=== PATIENT | male | born 1950 | race Caucasian/White ===

== ENCOUNTER 2018-08-06 20:18 | Inpatient (IN) ==
[2018-08-06] MEDS ORDERED: TYLENOL PR ONE (20:55)
[2018-08-06 22:04] LABS: INFLUENZA A NEGATIVE (NEGATIVE); INFLUENZA B NEGATIVE (NEGATIVE)
--- NOTE | 2018-08-06 22:04 | Diag Imaging Result Doc PS360 ---
EXAM: CHEST-PORTABLE 08/06/2018 HISTORY: fever TECHNIQUE: Erect AP portable at 2145 COMMENT: The inspiration is suboptimal. There is a granuloma in the right base. Compared to 11/01/2017 there is slightly more prominence of the aortic arch of the aorta with displacement of the trachea to the right. The previous CT of the chest dated 01/08/2015 demonstrated slight dilatation of the ascending aorta to over 4 cm. There is no evidence of acute pulmonary parenchymal disease. IMPRESSION: Dilatation of the aortic arch. This appears slightly worse than on the previous study of 11/01/2017. Electronically signed by Ramiro Jurado 08/06/2018 10:02 PM
[2018-08-06 22:07] LABS: BASO# 0.02 X1000 (0.0-0.2); BASO% 0.1 % (0.0-0.8); EOS# 0.04 X1000 (0.0-0.7); EOS% 0.3 % (0.0-10.0); HEMATOCRIT 42.8 % (42.0-52.0); IMM GRAN# 0.02 X1000 (0.0-0.04); IMM GRAN% 0.1 % (0.0-0.5); LYMPH# 0.76 X1000 (1.2-3.4); LYMPH% 5.6 % (20.5-51.1); MCH 26.8 PG (27-31); MCHC 32.7 g/dL (33-37); MONO# 1.39 X1000 (0.11-0.59); MONO% 10.3 % (1.7-9.3); MPV 10.8 FL (7.4-10.4); NEUT# 11.27 X1000 (1.4-6.5); NEUT% 83.6 % (42.2-75.2); PLT 208 X1000 (130-400); RBC 5.22 XMIL (4.7-6.1); RDW 14.5 % (11.5-14.5)
[2018-08-06 22:26] LABS: INR 1.22
[2018-08-06 22:27] LABS: PTT 32.2 Seconds (22.3-41.8)
[2018-08-06 22:28] LABS: ALBUMIN 3.9 g/dL (3.5-5.0); CALCIUM 8.3 mg/dL (8.8-10.2); CREATININE 1.9 mg/dL (0.7-1.2); POTASSIUM 4.1 mmol/L (3.5-5.1); TOTAL BILIRUBIN 0.8 mg/dL (0.20-1.00); TOTAL PROTEIN 7.1 g/dL (6.3-8.3)
[2018-08-06] MEDS ORDERED: TYLENOL PO ONE (22:29)
[2018-08-06] MEDS ORDERED: NS 1,000 ML IV ONE (22:30)
[2018-08-07] MEDS ORDERED: ZOSYN 3.375 GM in NS 50 ML IV ONE (01:03)
[2018-08-07] MEDS: ZOFRAN IV PRN (01:36)
[2018-08-07] MEDS: NS 1,000 ML IV ONE ×2 (01:50→09:06)
--- NOTE | 2018-08-07 07:09 | Diag Imaging Result Doc PS360 ---
EXAM: CT ANGIOGRAM THORAX - 08/06/2018 HISTORY: fever ; widened mediastinum TECHNIQUE: CT angiogram thorax with intravenous contrast. Axial and coronal, 2-D coronal MIP, and the MIP images are obtained. The referring provider approved intravenous contrast administration. COMPARISON: None. FINDINGS: The ascending aorta is mildly dilated up to 4.1 cm. There is no evidence of aortic dissection. There are coronary artery atherosclerotic calcifications noted. 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 There is mild dependent atelectasis. There is no consolidation, pleural effusion or pneumothorax identified. There are nonspecific small mediastinal lymph nodes. Included sections of the upper abdomen show stones in the bilateral kidneys, including a staghorn-like stones in the right kidney. There has been prior cholecystectomy. IMPRESSION: Mildly dilated ascending aorta up to 4.1 cm. No evidence of aortic dissection. There are coronary artery atherosclerotic calcifications noted. Mild dependent atelectasis. No evidence of pneumonia. Bilateral renal stones noted. The transplant nurse practitioner radiologist provided preliminary results at 12:37 AM on 08/07/2018. Electronically signed by Cameron Casillas 08/07/2018 7:07 AM
--- NOTE | 2018-08-07 08:04 | EKG Report ---
Test Performed on : 08/06/2018 9:25:25 PM Test Reason : chest pain Blood Pressure : / mmHG Vent. Rate : 089 BPM Atrial Rate : 500 BPM P-R Int : 000 ms QRS Dur : 068 ms QT Int : 354 ms P-R-T Axes : 000 006 040 degrees QTc Int : 430 ms Atrial fibrillation. with premature ventricular or aberrantly conducted complexes. Possible Inferior infarct , age undetermined Abnormal ECG When compared with ECG of 06-AUG-2018 21:24, (Unconfirmed) Atrial fibrillation. has replaced Junctional rhythm. Unconfirmed Result
[2018-08-07] MEDS: TYLENOL PO PRN ×2 (08:09→17:47)
[2018-08-07] MEDS ORDERED: NS 1,000 ML IV SCH (09:00)
[2018-08-07] MEDS: ZOSYN 3.375 GM in NS 50 ML IV SCH ×3 (09:07→23:38)
--- NOTE | 2018-08-07 09:50 | HISTORY AND PHYSICAL ---
PRIMARY CARE PHYSICIAN: Dr. Viky Burk. CHIEF COMPLAINT: Altered mental status and fever. HISTORY OF PRESENTING ILLNESS: This is a 67-year-old, male who presents to [facility] ER initially with the caregiver and his daughter stating that he had a temperature of 102 degrees at home and had been given Tylenol without relief. He had increased confusion and a cough. He has had a history of a CVA and dementia. Caregiver also reported that he had been having some trouble eating and seemed to choke on his food occasionally. He had not been wanting to eat anything but had been able to drink. His workup in the emergency room showed a temperature of 100.3 degrees. His white blood cell count was 13.50. His BUN was 25 with a creatinine of 1.9. We did a chest x-ray that showed dilation of the aortic arch that appeared slightly worse than his previous study of 11/01/[address] so we did a CT of the chest and thorax that showed a mildly dilated ascending aorta up to 4.1 cm but no evidence of aortic dissection noted. This morning, his temperature went up to 102 so he is being admitted for further evaluation and treatment. He is noted to be alert and awake but confused and unable to answer questions appropriately. No family at the bedside at this time. Information will be obtained from the ER records and previous medical records. 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 PAST SURGICAL HISTORY: Cholecystectomy, hernia repair, and lithotripsy. FAMILY HISTORY: Reviewed and noncontributory. SOCIAL HISTORY: He currently lives with family and has a caregiver. He has a history of smoking cigarettes but has been quit for greater than a year at this time. No alcohol or illicit drug use noted. ALLERGIES: He has no known drug allergies. HOME MEDICATIONS: A current list will need to be obtained, reviewed, and then restarted. We will place an order for nursing to update and confirm home medications. LABORATORY DATA: Showed a white blood cell count of 13.50, a hemoglobin of 14, hematocrit 42.8, platelets 208,000. PT and INR of 16 and 1.22. Sodium 136, potassium 4.1, chloride 97, CO2 24, BUN of 25, creatinine 1.9, glucose 157. Troponin was less than 0.010. Plasma lactate of 1.9. Influenza A and B were both negative. Chest x-ray showed dilation of the aortic arch that appeared to be slightly worse than on the previous study of 11/01/2017. We did a chest/thorax CTA that showed impression of mildly dilated ascending aorta up to 4.1 cm. No evidence of aortic dissection. There are coronary artery atherosclerotic calcifications noted. Mild dependent atelectasis but no evidence of pneumonia, and bilateral renal stones were noted. REVIEW OF SYSTEMS: Unable to obtain from patient due to confusion. PHYSICAL EXAMINATION: VITAL SIGNS: On arrival, he had a temperature of 100.3 degrees, pulse 73, respirations 18, blood pressure 133/73, saturating 96% on room air. This morning, he had a temperature of 102 degrees, still saturating 97% on room air. GENERAL: This is a 67-year-old, male who is lying in the bed. Unable to answer all questions appropriately. He can answer some simple yes or no questions. HEENT: Normocephalic, atraumatic. Normal ENT inspection. Oropharynx and nares are clear. Eyes: Pupils are equal, round, and reactive to light and accommodation. Extraocular movements are intact. NECK: Normal inspection. Normal range of motion. LUNGS: Clear to auscultation bilaterally with equal lung expansion and chest wall movement. HEART: With an irregular rate and rhythm but no murmurs, rubs, or gallops noted. ABDOMEN: Soft, nontender, nondistended. Bowel sounds are present x4 quadrants. MUSCULOSKELETAL: He is unable to ambulate and has right-sided weakness residual from his previous CVA. NEUROLOGICAL: Cranial nerves 2-12 appear grossly intact from what could be assessed at this time due to his confusion. ASSESSMENT: 1. Altered mental status. 2. Fever of unknown origin at this time. 3. Acute kidney injury. 4. Leukocytosis. PLAN: He has been admitted to the medical unit, placed on telemetry, O2 per protocol. He is NPO at this time. We are going to get a CT of the head without contrast. We are going to get a UA with reflux culture as this may be the source of the altered mental status, leukocytosis, and fever. We will obtain that this morning and review those results. We will go ahead and place him on Zosyn 3.375 g IV q.6 hours, normal saline at 75 mL an hour, Tylenol 650 p.o. q.6 hours p.r.n., Zofran 4 mg IV q.4 hours p.r.n. Again, we will have nursing to update and confirm home medications. We will restart as appropriate. Then we will check a CBC and BMP in the a.m. Further orders after seen by attending. Dictated by DEMARIO Grigsby for Brian Saha MD cc: DEMARIO Grigsby MD Lindsay Smith
--- NOTE | 2018-08-07 10:43 | Diag Imaging Result Doc PS360 ---
EXAM: CT HEAD W/O CONTRAST - 08/07/2018 HISTORY: AMS, HX CVA TECHNIQUE: CT head without contrast COMPARISON: 11/01/2017 FINDINGS: There are atrophic changes with prominence of the ventricular system, similar to prior. There are chronic ischemic changes, with old left superior frontal infarct, similar to prior. There is no new infarct identified, although acute infarcts may not be immediately visible. There is no evidence of intracranial hemorrhage, mass effect, or midline shift. There is no evidence of skull fracture. IMPRESSION: Atrophic changes and chronic ischemic changes similar to prior. No visible acute intracranial abnormality. This exam was performed using automated exposure control, adjustment of mA or kV according to patient size, and/or use of iterative reconstruction technique. Electronically signed by Cameron Casillas 08/07/2018 10:40 AM
[2018-08-07 11:10] LABS: BILIRUBIN URINE NEGATIVE (NEGATIVE); BLOOD URINE 4+ (NEGATIVE); CLARITY SL. CLOUDY (CLEAR); COLOR YELLOW; GLUCOSE URINE NEGATIVE (NEGATIVE); KETONE URINE NEGATIVE (NEGATIVE); LEUKOCYTES URINE 2+ (NEGATIVE); NITRITE URINE NEGATIVE (NEGATIVE); PROTEIN URINE 1+(30 mg/dL) mg/dL (NEGATIVE); SP GRAVITY URINE 1.005; UROBILINOGEN URINE NORMAL
[2018-08-07 11:19] LABS: URINE EPITHELIAL CELLS <10 /HPF (<10); URINE RBC TNTC /HPF (<10); URINE SOURCE CATH
[2018-08-07 11:20] LABS: UR AMPHETAMINES QUAL NONE DETECTED (NONE DETECT); UR BARBITUATES QUAL NONE DETECTED (NONE DETECT); UR BENZODIAZEPIN QUAL NONE DETECTED (NONE DETECT); UR CANNABINOIDS QUAL NONE DETECTED (NONE DETECT); UR COCAINE QUAL NONE DETECTED (NONE DETECT); UR METHADONE QUAL NONE DETECTED (NONE DETECT); UR METHAMPHETAMINE QUAL NONE DETECTED (NONE DETECT); UR OPIATES QUAL NONE DETECTED (NONE DETECT); UR OXYCODONE QUAL NONE DETECTED (NONE DETECT); UR PCP QUAL NONE DETECTED (NONE DETECT); UR PROPOXYPHENE QUAL NONE DETECTED (NONE DETECT); UR TCA QUAL NONE DETECTED (NONE DETECT)
--- NOTE | 2018-08-07 11:32 | Diag Imaging Result Doc PS360 ---
EXAM: CT RENAL STONE SEARCH - 08/07/2018 HISTORY: jakob TECHNIQUE: CT renal stone search without contrast COMPARISON: 11/02/2016 FINDINGS: There is intravenous contrast only prior evening's CT angiogram thorax in the bilateral renal collecting systems and urinary bladder. The dense contrast limits detail with regards to evaluate for renal stones. There is an apparent staghorn like calculus extends from the upper collecting system and into the renal pelvis on the right. There are apparent stones in the left kidney which are most conspicuous at the lower kidney. There is no hydronephrosis identified. There is a 2.1 cm cyst which arises at the lower right kidney similar to prior. There is a small umbilical hernia which contains a loop of small bowel, similar to prior. There is no evidence of bowel obstruction. There is mild colonic diverticulosis. There is no indication of diverticulitis. There is a moderate amount retained fecal debris in colon and rectum. There is no free air. The gallbladder is surgically absent. There are borderline retroperitoneal lymph nodes similar to prior. IMPRESSION: Some limitation of detail due to excreted intravenous contrast in the bilateral renal collecting systems and urinary bladder. There is an apparent staghorn like calculus which extends from the upper collecting system into the renal pelvis on the right. There are apparent stones in the left kidney which are most conspicuous at the lower kidney. There is no hydronephrosis identified. Small umbilical hernia which contains a loop of small bowel, similar to prior. No bowel obstruction. Mild uncomplicated colonic diverticulosis. Apparent constipation. This exam was performed using automated exposure control, adjustment of mA or kV according to patient size, and/or use of iterative reconstruction technique. Electronically signed by Cameron Casillas 08/07/2018 11:30 AM
[2018-08-07] MEDS: ASPIRIN EC PO SCH (14:27)
--- NOTE | 2018-08-07 15:29 | PROGRESS NOTE ---
DATE: 08/07/2018 SUBJECTIVE: Patient has no focal complaints. OBJECTIVE: Blood pressure 110/60, heart rate 70, respiratory 20, and temperature 98.2 degrees. The patient presented with confusion and fever really unknown source. He does have a history of staghorn calculi. He reports cough. His workup though does not suggest any clear source of infection, although the urinalysis which was not obtained until the day following the day after admission or the morning of the next day reveals hematuria and some degree of pyuria. He has Staghorn calculi. ASSESSMENT AND PLAN: My suspicion is he has a urinary tract infection with some degree of sepsis. Head CT which was also not obtained is negative. Renal colic CT was negative for an impacted ureteral stone. Other than that, he seems to be stable. cc: Brian Saha MD
[2018-08-07] MEDS ORDERED: FLU VACCINE IM ONE (18:37)
[2018-08-07] MEDS: KEPPRA PO SCH (23:37)
[2018-08-07] MEDS: LIPITOR PO SCH (23:37)
[2018-08-07] MEDS: LOPRESSOR PO SCH (23:37)
[2018-08-08] MEDS: ZOSYN 3.375 GM in NS 50 ML IV SCH ×3 (05:08→20:23)
[2018-08-08 06:40] LABS: BASO# 0.01 X1000 (0.0-0.2); BASO% 0.1 % (0.0-0.8); EOS# 0.03 X1000 (0.0-0.7); EOS% 0.4 % (0.0-10.0); HEMATOCRIT 36.8 % (42.0-52.0); HEMOGLOBIN 11.7 g/dL (14.0-18.0); IMM GRAN# 0.02 X1000 (0.0-0.04); IMM GRAN% 0.3 % (0.0-0.5); LYMPH# 0.59 X1000 (1.2-3.4); LYMPH% 7.6 % (20.5-51.1); MCH 26.4 PG (27-31); MCHC 31.8 g/dL (33-37); MCV 83.1 FL (81-99); MONO# 0.81 X1000 (0.11-0.59); MONO% 10.4 % (1.7-9.3); MPV 11.1 FL (7.4-10.4); NEUT# 6.31 X1000 (1.4-6.5); NEUT% 81.2 % (42.2-75.2); PLT 174 X1000 (130-400); RBC 4.43 XMIL (4.7-6.1); RDW 14.5 % (11.5-14.5); WBC 7.77 X1000 (4.8-10.8)
[2018-08-08 06:46] LABS: CALCIUM 7.7 mg/dL (8.8-10.2); CREATININE 1.7 mg/dL (0.7-1.2); POTASSIUM 3.7 mmol/L (3.5-5.1)
[2018-08-08] MEDS: PRINIVIL PO SCH (10:30)
[2018-08-08] MEDS: LOPRESSOR PO SCH ×2 (10:33→20:23)
[2018-08-08] MEDS: ASPIRIN EC PO SCH (10:33)
[2018-08-08] MEDS: KEPPRA PO SCH ×2 (10:33→20:23)
[2018-08-08] MEDS: LEXAPRO PO SCH (10:36)
[2018-08-08] MEDS ORDERED: NS 1,000 ML IV ONE (11:09)
[2018-08-08 11:49] LABS: ALBUMIN 2.7 g/dL (3.5-5.0); CALCIUM 7.4 mg/dL (8.8-10.2); CREATININE 1.6 mg/dL (0.7-1.2); POTASSIUM 3.2 mmol/L (3.5-5.1); TOTAL BILIRUBIN 0.4 mg/dL (0.20-1.00)
[2018-08-08] MEDS ORDERED: MBX SOLUTION MT PRN (15:45)
[2018-08-08] MEDS: LIPITOR PO SCH (20:23)
[2018-08-09] MEDS: ZOSYN 3.375 GM in NS 50 ML IV SCH ×4 (02:18→20:55)
[2018-08-09 06:17] LABS: BASO# 0.01 X1000 (0.0-0.2); BASO% 0.2 % (0.0-0.8); EOS# 0.11 X1000 (0.0-0.7); EOS% 1.7 % (0.0-10.0); HEMATOCRIT 33.1 % (42.0-52.0); HEMOGLOBIN 10.5 g/dL (14.0-18.0); IMM GRAN# 0.01 X1000 (0.0-0.04); IMM GRAN% 0.2 % (0.0-0.5); LYMPH# 0.77 X1000 (1.2-3.4); LYMPH% 12.1 % (20.5-51.1); MCHC 31.7 g/dL (33-37); MCV 81.9 FL (81-99); MONO# 0.86 X1000 (0.11-0.59); MONO% 13.5 % (1.7-9.3); MPV 10.7 FL (7.4-10.4); NEUT# 4.63 X1000 (1.4-6.5); NEUT% 72.3 % (42.2-75.2); PLT 179 X1000 (130-400); RBC 4.04 XMIL (4.7-6.1); RDW 14.3 % (11.5-14.5); WBC 6.39 X1000 (4.8-10.8)
[2018-08-09] MEDS: ASPIRIN EC PO SCH (08:26)
[2018-08-09] MEDS: LOPRESSOR PO SCH ×2 (08:26→20:55)
[2018-08-09] MEDS: KEPPRA PO SCH ×2 (08:27→20:55)
[2018-08-09] MEDS: PRINIVIL PO SCH (08:27)
[2018-08-09] MEDS: LEXAPRO PO SCH (08:27)
[2018-08-09] MEDS: LIPITOR PO SCH (20:55)
--- NOTE | 2018-08-09 22:03 | PROVIDER DOCUMENTATION ---
This chart was entered by Kera Banuelos Scribe, acting as scribe for Elton Kaur MD. HPI-General Adult - General Chief Complaint: Altered Mental Status Stated Complaint: AMS, FEVER Time Seen by Provider: 08/06/18 20:53 Source: patient Unable to obtain history due to:: altered (hx of dementia) Allergies/Adverse Reactions: Patient Allergies Allergy/AdvReac Type Severity Reaction Status Date / Time No Known Allergies Allergy Verified 02/15/18 20:32 Home Medications: Home Medication List Medication Instructions Recorded Confirmed Last Taken Type LISINOpril [Prinivil] 40 mg PO DAILY #0 tablet 08/12/14 02/15/18 06/19/16 Rx ATORVAstatin [Lipitor] 40 mg PO QHS 11/04/17 02/15/18 Unknown History Levetiracetam 500 mg PO BID 11/04/17 02/15/18 Unknown History Aspirin EC 81 mg PO DAILY tablet 11/05/17 02/15/18 Unknown Rx Escitalopram [Lexapro] 20 mg PO DAILY tablet 11/05/17 02/15/18 Unknown Rx Metoprolol [Lopressor] 12.5 mg PO BID tablet 11/05/17 02/15/18 Unknown Rx Rivaroxaban [Xarelto] 20 mg PO DAILY #30 tab 11/05/17 02/15/18 Unknown Rx - History of Present Illness -Gen Adult Nature of Presenting Problems: pt is a 67 yr male presenting with caregiver and daughter, caregiver reports fever today tmax 102, Tylenol given without relief, increased confusion and cough. she reports he has hx of CVA and dementia. caregiver reports last night he had trouble eating and seemed to be choking on his food, today pt has not wanted to eat anything but has been able to drink. pt does have dementia, difficulty communicating Severity: reports: moderate Onset/Duration: reports: this morning Timing: reports: still present Context/Activities at Onset: reports: rest Modifying Factors: improves with: analgesics (tylenol without relief) Associated Symptoms: reports: cough, fever/chills, weakness. denies: shortness of breath Review of Systems - Adult - REVIEW OF SYSTEMS - ADULT ROS:: ROS per family Constitutional: reports: fever, fatique Eyes: reports: no symptoms reported Ears, Nose, Mouth & Throat: reports: no symptoms reported Cardiovascular: reports: no symptoms reported Respiratory: reports: cough. denies: shortness of breath, wheezing Gastrointestinal: denies: diarrhea, vomiting Genitourinary: reports: no symptoms reported Musculoskeletal: reports: no symptoms reported Integumentary: reports: no symptoms reported Neurological: reports: other (increased confusion) Psychiatric: reports: no symptoms reported Endocrine: reports: no symptoms reported Hematologic/Lymphatic: reports: no symptoms reported Allergic/Immunologic: reports: no symptoms reported All Other Systems: Reviewed and Negative Past History - Adult - PAST MEDICAL HISTORY-ADULT Review of Records: reports: Old Records Reviewed, Nursing Assessment Review, Medications Reviewed, Social history reviewed & non-contributory. Major Childhood Illnesses: reports: denies history Cardiovascular: reports: A-Fib, HTN, hyperlipidemia Respiratory: reports: denies history Gastrointestinal: reports: denies history Obstetrical/Gynecological: reports: denies history Genitourinary: reports: kidney stones Musculoskeletal: reports: denies history Neurological: reports: CVA (July 2014), stroke deficits, dementia, Seizures/Epilepsy Endocrine/Immune: reports: denies history Other Conditions: reports: denies history - PRIOR SURGERIES/PROCEDURES Surgical/Procedure History: reports: cholecystectomy, hernia repair, other (cholecystectomy; lithotripsy) - IMMUNIZATION STATUS Childhood Immunizations: See Nurse Assessment Flu Vaccine: See Nurse Assessment - FAMILY HISTORY Family History: reviewed, not pertinent - SOCIAL HISTORY Smoking: quit greater than 1 year Substance Use: denies Living Situation: family Physical Exam-General - PHYSICAL EXAM-ADULT Initial Vital Signs Reviewed: Yes - CONSTITUTIONAL General Appearance: alert, no apparent distress, other (awake but not a reliable historian) - EYES Eyes: PERRL/EOMI, pink conjunctivae - HEAD, EARS, NOSE, MOUTH & THROAT HENMT: normocephalic/atraumatic, moist mucous membranes - NECK Neck: non-tender, full range of motion, supple, normal inspection - RESPIRATORY Respiratory: chest non-tender, lungs clear, decreased breath sounds (minimally decreased breath sounds). negative: wheezing - CARDIOVASCULAR Cardiovascular: normal peripheral pulses, regular rate, rhythm, no edema - GASTROINTESTINAL (ABDOMEN) Abdominal Exam: normal bowel sounds, non tender, soft - LYMPHATIC Lymphatic: no adenopathy - MUSCULOSKELETAL Back Exam: normal inspection, no CVA tenderness, no vertebral tenderness Extremity: normal range of motion, non-tender, normal inspection - SKIN Integumentary: normal color, normal turgor, warm/dry - NEUROLOGIC Neurologic: no motor/sensory deficits - PSYCHIATRIC Psych/Mental Status: disoriented x 3 Progress - PLAN OF CARE/RESULTS Progress/Plan/Lab Results: Vital Signs - 8 hr 08/06/18 20:47 Pulse Rate 73 Respiratory Rate 18 Blood Pressure 133/73 O2 Sat by Pulse Oximetry 96 Orders Category Date Time Status CHEST-PORTABLE [RAD] Stat Exams 08/06/18 21:08 Ordered CBC WITH ELECTRONIC DIFF [HEME] Stat Lab 08/06/18 21:07 Uncollected COMPREHENSIVE METABOLIC PANEL [CHEM] Stat Lab 08/06/18 21:[address] Stat Lab 08/06/18 21:07 Uncollected LACTATE, PLASMA [CHEM] Stat Lab 08/06/18 21:07 Uncollected PT [PROTIME WITH INR] [COAG] Stat Lab 08/06/18 21:07 Uncollected PTT [COAG] Stat Lab 08/06/18 21:07 Uncollected TROPONIN T Stat Lab 08/06/18 21:[address] [URINALYSIS] Stat Lab 08/06/18 21:08 Uncollected Acetaminophen [Tylenol] Med 08/06/18 20:55 Discontinued 650 mg OR NOW ONE EKG [EKG] Stat Ther 08/06/18 21:07 Ordered Result Diagrams: 08/06/18 21:38 08/06/18 21:38 - EKG 1 Time of EKG reading by physician:: 21:25 EKG Read and Signed by:: Elton Kaur EKG Interpretation (*Must complete 3 of following elements*): Abnormal (atrial fibrillation with premature ventricular or aberrantly conducted complexes; possible inferior infarct, age undetermined) Rate: 89 - XRAY 1 XRAY Study: Chest Impression: Abnormal (EXAM: CHEST-PORTABLE 08/06/2018 HISTORY: fever TECHNIQUE: Erect AP portable at 2145 COMMENT: The inspiration is suboptimal. There is a granuloma in the right base. Compared to 11/01/2017 there is slightly more prominence of the aortic arch of the aorta with displacement of the trachea to the right. The previous CT of the chest dated 01/08/2015 demonstrated slight dilatation of the ascending aorta to over 4 cm. There is no evidence of acute pulmonary parenchymal disease. IMPRESSION: Dilatation of the aortic arch. This appears slightly worse than on the previous study of 11/01/2017. Electronically signed by Ramiro Jurado 08/06/2018 10:02 PM [id number] Interpreting Physician: Ramiro Jurado MD Dictated Date/Time: [id number]) - CT/MRI 1 CT Study: Abdomen, Angiogram, Thorax Impression: Abnormal (No aortic dissection; thoracic aorta is 4cm; ateroscleroti c calcifications in coronary arteries, abdominal aorta; moderate to severe narrowing of proximal right renal artery; bilateral renal calculi; No pneumonia) - CONSULTS/PCP/HOSPITALIST Notification #1 *Consult/PCP/Hospitalist*: Dr. Saha Time Discussed: 01:00 Consult Disposition: Admit (start empiric antibiotic) Departure - Departure Date of Disposition Decision: 08/07/18 Time of Disposition Decision: 01:01 DIAGNOSIS: Fever Qualifiers: Fever type: unspecified Qualified Code(s): R50.9 - Fever, unspecified Altered mental status Qualifiers: Altered mental status type: unspecified Qualified Code(s): R41.82 - Altered mental status, unspecified Renal failure Qualifiers: Renal failure chronicity: unspecified chronicity Qualified Code(s): N19 - Unspecified kidney failure Disposition: ADMITTED INPATIENT 09 Certified Medical Emergency: Emergent Condition: Serious - Critical Care Note This patient required my direct & personal management of CC.: No Attestation - Physician/ ROSA Attestation The physician spent face to face time with patient:: Yes Advanced Practice Provider documentation review:: Supervising physician onsite and consulted in the evaluation and care of this patient. The physician did have a face to face encounter with the patient. This chart was documented by the indicated scribe, (Kera Banuelos Scribe) and accurately reflects the services I performed and decisions made by me, Elton Kaur MD, as attested by the provider's signature.
[2018-08-10] MEDS: ZOSYN 3.375 GM in NS 50 ML IV SCH ×4 (03:58→20:40)
[2018-08-10 07:21] LABS: BASO# 0.01 X1000 (0.0-0.2); BASO% 0.1 % (0.0-0.8); EOS# 0.29 X1000 (0.0-0.7); EOS% 4.1 % (0.0-10.0); HEMATOCRIT 32.6 % (42.0-52.0); HEMOGLOBIN 10.5 g/dL (14.0-18.0); IMM GRAN# 0.01 X1000 (0.0-0.04); IMM GRAN% 0.1 % (0.0-0.5); LYMPH# 1.25 X1000 (1.2-3.4); LYMPH% 17.8 % (20.5-51.1); MCH 26.6 PG (27-31); MCHC 32.2 g/dL (33-37); MCV 82.7 FL (81-99); MONO% 14.3 % (1.7-9.3); MPV 10.4 FL (7.4-10.4); NEUT# 4.45 X1000 (1.4-6.5); NEUT% 63.6 % (42.2-75.2); PLT 198 X1000 (130-400); RBC 3.94 XMIL (4.7-6.1); RDW 14.3 % (11.5-14.5); WBC 7.01 X1000 (4.8-10.8)
[2018-08-10 07:31] LABS: CALCIUM 7.4 mg/dL (8.8-10.2); CREATININE 1.4 mg/dL (0.7-1.2); POTASSIUM 3.6 mmol/L (3.5-5.1)
--- NOTE | 2018-08-10 09:14 | PROGRESS NOTE ---
DATE: 08/10/2018 SUBJECTIVE: Patient denies having any acute complaints this morning. OBJECTIVE: Vital Signs: Temperature 97.6 degrees, pulse 50 per minute, respiratory rate 19 per minute, blood pressure 117/67, pulse oximetry 99% on room air. General: Patient is awake and does not have any acute complaints this morning. Cardiovascular System: First and second heart sounds are audible without any murmurs or gallops. Respiratory System: No respiratory distress noted. Bilateral lung air entry is good without any rales or rhonchi. Gastrointestinal System: Abdomen is soft and nontender. Normal bowel sounds are present. DIAGNOSTIC DATA: CBC this morning shows hemoglobin 10.5 and hematocrit 32.6, which is pretty much the same as compared to previous days' labs. He did have hemoglobin 14 and hematocrit 42.8 on admission on 08/06/2018, however. Basic metabolic panel shows BUN of 1.4. Rest of the basic metabolic panel is nondiagnostic. On admission, his BUN was 25, creatinine was 1.9. IMPRESSION: 1. Sepsis secondary to urinary tract infection. 2. Acute kidney injury that is most likely prerenal. 3. Anemia of unknown etiology. PLAN: The patient will be continued on IV Zosyn and I am going to restart his IV fluids as normal saline at 75 mL an hour. I am also going to repeat urinalysis today and would obtain anemia workup, including stool for Hemoccult. Further recommendations will be given as per hospital course. cc: Agatha Orlando MD
[2018-08-10] MEDS: NS 1,000 ML IV SCH (09:18)
[2018-08-10] MEDS: PRINIVIL PO SCH (09:19)
[2018-08-10] MEDS: ASPIRIN EC PO SCH (09:19)
[2018-08-10] MEDS: KEPPRA PO SCH ×2 (09:19→20:40)
[2018-08-10] MEDS: LOPRESSOR PO SCH ×2 (09:19→20:40)
[2018-08-10] MEDS: LEXAPRO PO SCH (09:20)
[2018-08-10 09:58] LABS: IRON SATURATION 12 %; TIBC 163 ug/dL; TOTAL IRON 19 ug/dL (53-167); UNBOUND IRON 144 ug/dL (112-346)
[2018-08-10 11:02] LABS: OCCULT BLOOD 1 NEGATIVE (NEGATIVE)
[2018-08-10 11:54] LABS: BILIRUBIN URINE NEGATIVE (NEGATIVE); CLARITY CLEAR (CLEAR); COLOR YELLOW; GLUCOSE URINE NEGATIVE (NEGATIVE); KETONE URINE NEGATIVE (NEGATIVE); URINE SOURCE CLEAN CATCH
[2018-08-10 11:55] LABS: BLOOD URINE 3+ (NEGATIVE); LEUKOCYTES URINE 2+ (NEGATIVE); NITRITE URINE NEGATIVE (NEGATIVE); PROTEIN URINE NEGATIVE (NEGATIVE); UROBILINOGEN URINE NORMAL
[2018-08-10 12:02] LABS: URINE BACTERIA 1+ /HFP
[2018-08-10] MEDS: LIPITOR PO SCH (20:40)
[2018-08-11] MEDS: ZOSYN 3.375 GM in NS 50 ML IV SCH ×4 (02:35→20:40)
[2018-08-11] MEDS: NS 1,000 ML IV SCH ×2 (03:13→11:54)
[2018-08-11 06:13] LABS: BASO# 0.01 X1000 (0.0-0.2); BASO% 0.2 % (0.0-0.8); EOS# 0.26 X1000 (0.0-0.7); EOS% 5.2 % (0.0-10.0); HEMATOCRIT 31.3 % (42.0-52.0); IMM GRAN# 0.01 X1000 (0.0-0.04); IMM GRAN% 0.2 % (0.0-0.5); LYMPH# 0.98 X1000 (1.2-3.4); LYMPH% 19.4 % (20.5-51.1); MCH 26.3 PG (27-31); MCHC 31.9 g/dL (33-37); MCV 82.4 FL (81-99); MONO# 0.54 X1000 (0.11-0.59); MONO% 10.7 % (1.7-9.3); MPV 10.7 FL (7.4-10.4); NEUT# 3.24 X1000 (1.4-6.5); NEUT% 64.3 % (42.2-75.2); PLT 203 X1000 (130-400); RDW 14.4 % (11.5-14.5); WBC 5.04 X1000 (4.8-10.8)
[2018-08-11 06:38] LABS: CALCIUM 7.4 mg/dL (8.8-10.2); CREATININE 1.2 mg/dL (0.7-1.2); POTASSIUM 3.3 mmol/L (3.5-5.1)
[2018-08-11] MEDS ORDERED: KLOR-CON PO ONE (08:12)
[2018-08-11] MEDS: PRINIVIL PO SCH (08:52)
[2018-08-11] MEDS: LEXAPRO PO SCH (08:52)
[2018-08-11] MEDS: LOPRESSOR PO SCH ×2 (08:52→20:40)
[2018-08-11] MEDS: ASPIRIN EC PO SCH (08:52)
[2018-08-11] MEDS: KEPPRA PO SCH ×2 (08:52→20:40)
--- NOTE | 2018-08-11 10:46 | PROGRESS NOTE ---
DATE: 08/11/2018 SUBJECTIVE: The patient denies having any acute complaints this morning, although he does feel weak. OBJECTIVE: Vital Signs: Temperature 97.5 degrees, pulse 55 per minute, respiratory rate 18 per minute, blood pressure 130/72, pulse oximetry 98% on room air. General: Patient is alert and oriented x3. He does not appear to be in any acute distress. Cardiovascular System: First and second heart sounds are audible without any murmurs or gallops. Respiratory System: No respiratory distress noted. Bilateral lung air entry is good without any rales or rhonchi. Gastrointestinal System: Abdomen is soft and nontender. Normal bowel sounds are present. DIAGNOSTIC DATA: CBC shows WBC count of 5.04, hemoglobin 10.0, hematocrit 31.3, and platelet count of 203. In comparison, his hemoglobin and hematocrit were 10.5 and 32.6 yesterday. Chemistry shows potassium level of 3.3. Rest of the basic metabolic panel is nondiagnostic. His creatinine levels have improved from 1.4 to 1.2 today. IMPRESSION: 1. Sepsis secondary to urinary tract infection. 2. Acute kidney injury that has improved. 3. Anemia with stool Hemoccult negative, which has been stable. 4. Hypokalemia. PLAN: The patient will be continued on IV Zosyn along with IV fluids. He will also be kept on his routine home medications, and I am going to give him potassium chloride 40 mEq orally as a single dose for his hypokalemia. We will continue to monitor his hemoglobin and hematocrit, and therefore I am going to repeat CBC and BMP tomorrow morning. Further recommendations will be given as per hospital course. cc: Agatha Orlando MD
[2018-08-11] MEDS: LIPITOR PO SCH (20:40)
[2018-08-12] MEDS: ZOSYN 3.375 GM in NS 50 ML IV SCH ×4 (02:34→23:03)
[2018-08-12] MEDS: NS 1,000 ML IV SCH ×3 (02:35→18:12)
[2018-08-12 06:46] LABS: BASO# 0.02 X1000 (0.0-0.2); BASO% 0.3 % (0.0-0.8); EOS# 0.29 X1000 (0.0-0.7); EOS% 4.9 % (0.0-10.0); HEMATOCRIT 32.1 % (42.0-52.0); IMM GRAN# 0.01 X1000 (0.0-0.04); IMM GRAN% 0.2 % (0.0-0.5); LYMPH# 0.97 X1000 (1.2-3.4); LYMPH% 16.6 % (20.5-51.1); MCHC 31.2 g/dL (33-37); MCV 83.4 FL (81-99); MONO# 0.62 X1000 (0.11-0.59); MONO% 10.6 % (1.7-9.3); MPV 10.4 FL (7.4-10.4); NEUT# 3.95 X1000 (1.4-6.5); NEUT% 67.4 % (42.2-75.2); PLT 226 X1000 (130-400); RBC 3.85 XMIL (4.7-6.1); RDW 14.5 % (11.5-14.5); WBC 5.86 X1000 (4.8-10.8)
[2018-08-12 07:03] LABS: CALCIUM 7.5 mg/dL (8.8-10.2); CREATININE 1.2 mg/dL (0.7-1.2); POTASSIUM 3.7 mmol/L (3.5-5.1)
--- NOTE | 2018-08-12 10:02 | PROGRESS NOTE ---
DATE: 08/12/2018 SUBJECTIVE: Patient denies having any acute complaints this morning. OBJECTIVE: Vital Signs: Temperature 98 degrees, pulse 59 per minute, respiratory rate 17 per minute, blood pressure 142/63, pulse 97% on room air. General: Patient is alert and oriented x3. He does not appear to be in any acute distress. Cardiovascular System: First and second heart sounds are audible without any murmurs or gallops. Respiratory System: Bilateral lung air entry is moderately decreased, but there are no rales or rhonchi present on auscultation. GI system: Abdomen is benign. DIAGNOSTIC DATA: CBC shows WBC count of 5.86, hemoglobin 10, hematocrit 32.1, and platelet count of 226,000. In comparison, his hemoglobin and hematocrit were unchanged yesterday. Basic metabolic panel this morning is nondiagnostic. His potassium levels have improved from 3.3 to 7.7, however. IMPRESSION: 1. Sepsis secondary to urinary tract infection. 2. Anemia that has been stable. 3. Hypokalemia that has improved. 4. Generalized weakness for which he is getting physical therapy. PLAN: The patient will be continued on IV Zosyn along with IV fluids and will be kept on his routine home medications. He is having anemia, but that is stable and therefore, no further workup is necessary at this time. He will continue with physical therapy and will most likely be transferred to rehab sometime this week. cc: Agatha Orlando MD
[2018-08-12] MEDS: ASPIRIN EC PO SCH (10:07)
[2018-08-12] MEDS: PRINIVIL PO SCH (10:07)
[2018-08-12] MEDS: KEPPRA PO SCH ×2 (10:07→21:31)
[2018-08-12] MEDS: LEXAPRO PO SCH (10:07)
[2018-08-12] MEDS: LOPRESSOR PO SCH ×2 (10:08→21:32)
[2018-08-12] MEDS: LIPITOR PO SCH (21:32)
[2018-08-13] MEDS: NS 1,000 ML IV SCH (05:29)
[2018-08-13] MEDS: ZOSYN 3.375 GM in NS 50 ML IV SCH ×4 (05:30→23:16)
[2018-08-13 06:40] LABS: BASO# 0.01 X1000 (0.0-0.2); BASO% 0.1 % (0.0-0.8); EOS# 0.31 X1000 (0.0-0.7); EOS% 4.1 % (0.0-10.0); HEMATOCRIT 31.9 % (42.0-52.0); HEMOGLOBIN 9.8 g/dL (14.0-18.0); IMM GRAN# 0.02 X1000 (0.0-0.04); IMM GRAN% 0.3 % (0.0-0.5); LYMPH# 0.98 X1000 (1.2-3.4); LYMPH% 13.1 % (20.5-51.1); MCH 25.7 PG (27-31); MCHC 30.7 g/dL (33-37); MCV 83.7 FL (81-99); MONO# 0.66 X1000 (0.11-0.59); MONO% 8.8 % (1.7-9.3); MPV 10.3 FL (7.4-10.4); NEUT# 5.49 X1000 (1.4-6.5); NEUT% 73.6 % (42.2-75.2); PLT 234 X1000 (130-400); RBC 3.81 XMIL (4.7-6.1); RDW 14.6 % (11.5-14.5); WBC 7.47 X1000 (4.8-10.8)
[2018-08-13 06:52] LABS: CALCIUM 7.4 mg/dL (8.8-10.2); CREATININE 1.2 mg/dL (0.7-1.2); POTASSIUM 3.6 mmol/L (3.5-5.1)
[2018-08-13] MEDS: ASPIRIN EC PO SCH (09:27)
[2018-08-13] MEDS: PRINIVIL PO SCH (09:27)
[2018-08-13] MEDS: LOPRESSOR PO SCH ×2 (09:27→20:33)
[2018-08-13] MEDS: KEPPRA PO SCH ×2 (09:27→20:33)
[2018-08-13] MEDS: LEXAPRO PO SCH (09:28)
--- NOTE | 2018-08-13 15:03 | PROGRESS NOTE ---
DATE: 08/13/2018 SUBJECTIVE: Patient overall is in no distress. He states he is feeling a little bit better. He is still very weak and fatigued. He has not really been up with physical therapy as yesterday was Monday. He denies any chest pain or palpitations. PHYSICAL EXAMINATION: Vital Signs: Reviewed and stable. General: He is awake and alert. He is in no distress. HEENT: Normocephalic. Neck: Supple. Cardiovascular: Regular rate. No murmurs. Chest: Clear. ASSESSMENT: 1. Sepsis secondary to urinary tract infection. 2. Urinary tract infection. 3. Anemia. 4. Hypokalemia, resolved. 5. Generalized weakness. Continue physical therapy. PLAN: Overall, the patient appears to be doing better. We will continue IV fluids today and then we will stop after this bag. We will continue Zosyn. We will get physical therapy involved. cc: Shaq Becker MD
[2018-08-13] MEDS: LACTULOSE PO SCH ×2 (17:31→20:34)
[2018-08-13] MEDS: LIPITOR PO SCH (20:33)
[2018-08-14] MEDS: ZOSYN 3.375 GM in NS 50 ML IV SCH ×4 (05:10→22:00)
[2018-08-14] MEDS: LOPRESSOR PO SCH ×2 (08:50→21:52)
[2018-08-14] MEDS: LEXAPRO PO SCH (08:50)
[2018-08-14] MEDS: PRINIVIL PO SCH (08:50)
[2018-08-14] MEDS: KEPPRA PO SCH ×2 (08:50→21:51)
[2018-08-14] MEDS: LACTULOSE PO SCH ×2 (08:50→21:52)
[2018-08-14] MEDS: ASPIRIN EC PO SCH (08:50)
[2018-08-14] MEDS: ZOFRAN IV PRN (16:32)
--- NOTE | 2018-08-14 16:55 | Diag Imaging Result Doc PS360 ---
EXAM: CHEST-PORTABLE HISTORY: wheezing, possible aspiration TECHNIQUE: Portable chest single view COMPARISON: 08/06/2018 FINDINGS: Poor inspiratory effort. The heart is not enlarged. The vessels are not distended. There are no infiltrates. No effusion identified. IMPRESSION: No pneumonia Electronically signed by Jeffrey Nguyễn 08/14/2018 4:53 PM
[2018-08-14] MEDS: LIPITOR PO SCH (21:51)
--- NOTE | 2018-08-14 22:23 | PROGRESS NOTE ---
DATE: 08/14/2018 SUBJECTIVE: The patient has no new complaints this morning. Denies any shortness of breath, chest pain. PHYSICAL: Temperature 97.9, pulse 86, respiratory 18, BP 150/69.General: Patient is awake, he is in no current respiratory distress. HEENT: Normocephalic. Neck: Supple. CV: Regular rate. Chest: Clear. Abdomen: Soft. Extremities: Moves all extremities although generalized weakness. ASSESSMENT: 1. Sepsis secondary to urinary tract infection. 2. Urinary tract infection . 3. Anemia. 4. Hyperkalemia resolved. 5. Generalized weakness requiring physical therapy. PLAN: Will continue physical therapy, continue to follow, patient will transfer to rehab when available. cc: Shaq Becker MD
[2018-08-15] MEDS ORDERED: NS 50 ML ONE ×2 (04:14→04:15)
[2018-08-15] MEDS: ZOSYN 3.375 GM in NS 50 ML IV SCH ×4 (04:45→23:20)
[2018-08-15] MEDS: PRINIVIL PO SCH (08:19)
[2018-08-15] MEDS: KEPPRA PO SCH ×2 (08:19→21:45)
[2018-08-15] MEDS: ASPIRIN EC PO SCH (08:19)
[2018-08-15] MEDS: LEXAPRO PO SCH (08:19)
[2018-08-15] MEDS: LACTULOSE PO SCH ×2 (08:20→21:45)
[2018-08-15] MEDS: LIPITOR PO SCH (21:45)
--- NOTE | 2018-08-16 00:38 | PROGRESS NOTE ---
DATE: 08/15/2018 SUBJECTIVE: The patient has no new complaints. OBJECTIVE: Vital Signs: Temperature 97, pulse 41, respiratory rate 18, BP 138/55. General: The patient is awake and alert. He is in no distress. HEENT: Normocephalic. Neck: Supple. Cardiovascular: Bradycardia. No murmurs. Chest: Clear and nonlabored. Abdomen: Soft, nondistended. Extremities: Moves all extremities. ASSESSMENT: 1. Bradycardia likely iatrogenically induced. 2. Generalized weakness. 3. Sepsis. 4. Urinary tract infection. PLAN: We will follow the patient's heart rate. We will not discharge him to rehab today as his heart rate is low. We will continue to follow. cc: Shaq Becker MD
[2018-08-16] MEDS: ZOSYN 3.375 GM in NS 50 ML IV SCH ×2 (04:49→11:45)
[2018-08-16 07:23] VITALS: BP 156/67
[2018-08-16] MEDS: LACTULOSE PO SCH (08:45)
[2018-08-16] MEDS: PRINIVIL PO SCH (08:45)
[2018-08-16] MEDS: ASPIRIN EC PO SCH (08:45)
[2018-08-16] MEDS: KEPPRA PO SCH (08:45)
[2018-08-16] MEDS: LEXAPRO PO SCH (08:45)
--- NOTE | 2018-08-16 11:04 | DISCHARGE SUMMARY ---
ADMISSION DATE: 08/07/2018 DISCHARGE DATE: 08/16/2018 DIAGNOSES: 1. Sepsis secondary to UTI, resolved. 2. Fever, resolved. 3. Acute kidney injury, resolved. 4. Leukocytosis, resolved. 5. Hypokalemia, resolved. 6. Generalized weakness. DIAGNOSTICS: 1. 08/06/2018 chest x-ray revealed dilatation of the aortic arch to over 4 cm with no evidence of acute pulmonary parenchymal disease. 2. CT angiogram thorax revealed mildly dilated aorta up to 4.1 cm. No evidence of dissection. Coronary artery atherosclerotic calcifications are noted. Mild dependent atelectasis. No evidence of pneumonia with bilateral renal stones noted. 3. Renal CT. There is an apparent staghorn like calculus which extends from the upper collecting system into the renal pelvis on the right. There are apparent stones in the left kidney, which are most conspicuous at the lower kidney. There is no hydronephrosis identified. Mild uncomplicated colonic diverticulosis. Small umbilical hernia which contains a loop of bowel similar to prior exam on October 2016. No bowel obstruction. 4. Repeat chest x-ray 08/14/2017 revealed no pneumonia, poor respiratory in effort. The heart is not enlarged. Vessels are not distended. There are no infiltrates, no effusion identified. MICROBIOLOGY: 1. Blood cultures x2 revealed no growth. 2. Urine culture revealed no growth although this was taken after antibiotics had begun. HOSPITAL COURSE: Mr. Domingo presented to the emergency room with altered mental status and a temperature of a 102 degrees. He was found to be septic from a urinary tract infection for which he has received Zosyn every 6 hours. This has cleared. He is now alert and oriented. He on admission, had a creatinine 1.9. After hydration and antibiotics the did creatinine has slowly decreased and today he is down to 1.2. We did trend electrolytes and replete as appropriate. Physical therapy has been working with the patient. Thankfully, he is ready for discharge to rehab. DISCHARGE VITAL SIGNS: Blood pressure is 156/67, heart rate of 50, respirations are 20, temperature is 98 degrees with room air saturations 98 to 100. PHYSICAL EXAMINATION: Cardiovascular regular rate and rhythm, S1 and S2 appreciated. He has no lower extremity edema with peripheral pulses palpable x4 extremities. Calves are nontender. Pulmonary: Breath sounds are diminished at the bases with no increased work of breathing noted. Chest rises and falls symmetrically with respiration. Chest wall is nontender to palpation. Gastrointestinal: Abdomen is soft, nontender, nondistended with bowel sounds in all 4 quadrants. Neurologic: He is alert oriented. DISCHARGE MEDICATIONS: 1. Lisinopril 40 mg p.o. daily. 2. Keppra 500 mg p.o. b.i.d. 3. Lexapro 20 mg daily. 4. MBX solution 15 mL 4 times a day p.r.n. 5. Lipitor 40 mg at bedtime. 6. Aspirin 81 mg daily. DISPOSITION: 1. The patient will not be discharged on antibiotics as blood culture and urine culture are ultimately negative and he has been on Zosyn 3.375 every 6 hours since August 07. 2. The patient is being discharged in transfer to rehab in stable condition. TIME SPENT: This is a greater than 30 minute discharge. Dictated by DEMARIO Mathew for Shaq Becker MD This chart was documented by, DEMARIO Mathew and accurately reflects the services performed, treatment plan and medical decisions as attested by the providers signature Shaq Becker MD. cc: DEMARIO Mathew MD
--- NOTE | 2018-08-17 02:23 | DISCHARGE SUMMARY ---
ADMISSION DATE: 08/07/2018 DISCHARGE DATE: 08/16/2018 ADDENDUM: Patient seen and examined by myself. Full note dictated and discussed with nurse practitioner. Patient's bradycardia has improved since holding his beta blockers. His sepsis appears resolved. He does have anemia, this is stable. He has been on antibiotics for 7 days, so therefore does not need to continue. We will transfer him to rehab. Please see full note. cc: Shaq Becker MD
== END 2018-08-16 13:12 | DRG 871 ==
LOC: P.ED 20:18 → P.MEDSURG 08-07 03:01 → SUATTDRO 08-07 03:01 → P.MEDSURG 08-07 03:24
PROVIDERS: ATTEND Family Medicine
CPT/HCPCS: 36415; 70450; 71010; 71045; 71275; 74176; 80048; 80053; 80104; 80301; 80305; 81001; 82270; 82607; 82728; 82746; 82948; 83540; 83550; 83605; 83615; 84484; 85025; 85610; 85730; 87040; 87088; 87275; 87276; 87804; 92610; 93005; 94761; 96361; 96365; 96366; 96375; 97162; 97530; 99285; A9270; G0431; G0434; G0477; J2405; J2543; J7030; Q9967; XXXXX

== ENCOUNTER 2019-03-27 20:54 | Inpatient (IN) ==
--- NOTE | 2019-03-27 21:27 | Diag Imaging Result Doc PS360 ---
EXAM: CT HEAD W/O CONTRAST 03/27/2019 HISTORY: possible stroke TECHNIQUE: This exam was performed using automated exposure control, adjustment of mA or kV according to patient size, and/or use of iterative reconstruction technique. COMMENT: There is generalized cerebral atrophy. There is encephalomalacia present anteriorly in the frontal and parietal cortex and subcortical white matter of the left hemisphere. There is generalized periventricular white matter lucency on the right. There is no evidence of bleed or abnormal extra-axial fluid collection. Compared to the previous examination of 08/07/2018 there has been no significant change. IMPRESSION: Chronic ischemic changes and atrophy. No evidence of acute disease. Electronically signed by Ramiro Jurado 03/27/2019 9:25 PM
[2019-03-27 21:53] LABS: BASO# 0.01 X1000 (0.0-0.2); BASO% 0.1 % (0.0-0.8); EOS# 0.01 X1000 (0.0-0.7); EOS% 0.1 % (0.0-10.0); HEMATOCRIT 42.7 % (42.0-52.0); HEMOGLOBIN 13.8 g/dL (14.0-18.0); IMM GRAN# 0.03 X1000 (0.0-0.04); IMM GRAN% 0.3 % (0.0-0.5); LYMPH# 0.86 X1000 (1.2-3.4); LYMPH% 7.7 % (20.5-51.1); MCHC 32.3 g/dL (33-37); MCV 86.6 FL (81-99); MONO# 1.15 X1000 (0.11-0.59); MONO% 10.3 % (1.7-9.3); MPV 10.4 FL (7.4-10.4); NEUT# 9.08 X1000 (1.4-6.5); NEUT% 81.5 % (42.2-75.2); PLT 214 X1000 (130-400); RBC 4.93 XMIL (4.7-6.1); RDW 13.5 % (11.5-14.5); WBC 11.14 X1000 (4.8-10.8)
[2019-03-27 22:18] LABS: ALBUMIN 3.9 g/dL (3.5-5.0); CALCIUM 8.9 mg/dL (8.8-10.2); CREATININE 1.8 mg/dL (0.7-1.2); POTASSIUM 3.8 mmol/L (3.5-5.1); TOTAL BILIRUBIN 0.7 mg/dL (0.20-1.00); TOTAL PROTEIN 7.4 g/dL (6.3-8.3)
[2019-03-27 22:25] LABS: BILIRUBIN URINE NEGATIVE (NEGATIVE); BLOOD URINE 4+ (NEGATIVE); CLARITY SL. CLOUDY (CLEAR); COLOR YELLOW; GLUCOSE URINE NEGATIVE (NEGATIVE); KETONE URINE TRACE mg/dL (NEGATIVE); LEUKOCYTES URINE 2+ (NEGATIVE); NITRITE URINE NEGATIVE (NEGATIVE); PROTEIN URINE 2+(100 mg/dL) mg/dL (NEGATIVE); UROBILINOGEN URINE 1 mg/dL
[2019-03-27 22:26] LABS: URINE BACTERIA 4+ /HFP; URINE EPITHELIAL CELLS <10 /HPF (<10); URINE RBC TNTC /HPF (<10); URINE WBC TNTC /HPF (<10)
[2019-03-27 22:27] LABS: URINE SMALL ROUND CELLS RENAL PRESENT; URINE SOURCE CATH
[2019-03-27 22:28] LABS: UR AMPHETAMINES QUAL NONE DETECTED (NONE DETECT); UR BARBITUATES QUAL NONE DETECTED (NONE DETECT); UR BENZODIAZEPIN QUAL NONE DETECTED (NONE DETECT); UR CANNABINOIDS QUAL NONE DETECTED (NONE DETECT); UR COCAINE QUAL NONE DETECTED (NONE DETECT); UR METHADONE QUAL NONE DETECTED (NONE DETECT); UR METHAMPHETAMINE QUAL NONE DETECTED (NONE DETECT); UR OPIATES QUAL NONE DETECTED (NONE DETECT); UR OXYCODONE QUAL NONE DETECTED (NONE DETECT); UR PCP QUAL NONE DETECTED (NONE DETECT); UR PROPOXYPHENE QUAL NONE DETECTED (NONE DETECT); UR TCA QUAL NONE DETECTED (NONE DETECT)
[2019-03-27] MEDS ORDERED: NS 2,000 ML IV ONE (22:40)
[2019-03-27] MEDS ORDERED: TYLENOL PO PRN (22:40)
[2019-03-27] MEDS: LEVAQUIN 500 MG/D5W 500 MG/100 ML IVPB IV SCH (23:15)
[2019-03-28] MEDS ORDERED: B & O 15A SUPP PR ONE (07:30)
[2019-03-28 07:43] LABS: CALCIUM 8.4 mg/dL (8.8-10.2); CREATININE 1.5 mg/dL (0.7-1.2); POTASSIUM 3.5 mmol/L (3.5-5.1)
[2019-03-28 07:46] LABS: BASO# 0.01 X1000 (0.0-0.2); BASO% 0.1 % (0.0-0.8); EOS# 0.08 X1000 (0.0-0.7); EOS% 0.9 % (0.0-10.0); HEMATOCRIT 39.3 % (42.0-52.0); HEMOGLOBIN 12.5 g/dL (14.0-18.0); IMM GRAN# 0.01 X1000 (0.0-0.04); IMM GRAN% 0.1 % (0.0-0.5); LYMPH# 1.01 X1000 (1.2-3.4); LYMPH% 11.9 % (20.5-51.1); MCH 27.5 PG (27-31); MCHC 31.8 g/dL (33-37); MCV 86.6 FL (81-99); MONO# 1.17 X1000 (0.11-0.59); MONO% 13.8 % (1.7-9.3); MPV 10.3 FL (7.4-10.4); NEUT# 6.18 X1000 (1.4-6.5); NEUT% 73.2 % (42.2-75.2); PLT 162 X1000 (130-400); RBC 4.54 XMIL (4.7-6.1); RDW 13.2 % (11.5-14.5); WBC 8.46 X1000 (4.8-10.8)
--- NOTE | 2019-03-28 07:59 | Diag Imaging Result Doc PS360 ---
EXAM: CHEST-PORTABLE - 03/27/2019 HISTORY: fever TECHNIQUE: Portable chest COMPARISON: 08/14/2018 FINDINGS: Inspiration is somewhat shallow. Lungs appear clear except for slight basilar subsegmental atelectasis. There is no consolidation, pleural effusion, or pneumothorax identified. Heart size appears within normal limits. There is stable fullness of the left mediastinum which apparently relates to ectatic aorta. IMPRESSION: Somewhat shallow inspiration, with slight basilar atelectasis. No evidence of pneumonia. Electronically signed by Cameron Casillas 03/28/2019 7:57 AM
--- NOTE | 2019-03-28 08:48 | HISTORY AND PHYSICAL ---
PRIMARY CARE PROVIDER: Dr. Viky Burk. CHIEF COMPLAINT: Per patient, "I had a stroke". HISTORY OF PRESENT ILLNESS: Mr. Domingo is a 68-year-old gentleman who could not provide much history. However, previous history we have on EMR shows a CVA in 2014 with right-sided hemiplegia, depression, atrial fibrillation, dementia, hypertension, kidney stones, seizures, questionable history of diabetes, was brought into the ED by his family at the [facility] with complaints of stroke-like symptoms, weakness and fever, headache, and an increase in speech problems. Family reported a temperature of 102.7 degrees and a headache at 3 a.m. yesterday with intermittent in fever and headache throughout the day and an increase in speech difficulty and confusion. He was admitted, found to have a UTI as well as an acute kidney injury on chronic kidney disease and questionable aspiration pneumonia. His initial head CT showed chronic ischemic changes and atrophy but no evidence of acute disease. Chest x-ray over-read is currently pending. He did have a white count of 11, a BUN of 23 and a creatinine of 1.8. He was initiated on IV fluids and IV antibiotics. We will do a complete neuro workup and treat accordingly. PAST MEDICAL HISTORY: 1. 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 2. Depression. 3. Atrial fibrillation. 4. Dementia. 5. Hypertension. 6. Kidney stones. 7. Seizures. 8. Questionable history of diabetes. PAST SURGICAL HISTORY: 1. Cholecystectomy. 2. Hernia repair. 3. Lithotripsy. FAMILY HISTORY: Noncontributory. SOCIAL HISTORY: Per last report, he was living with family and has a caregiver. No family at bedside at this time. History of smoking cigarettes but quit over a year ago. No alcohol or illicit drug use. ALLERGIES: No known drug allergies. HOME MEDICATIONS: 1. Lipitor 40 mg p.o. at bedtime. 2. Aspirin 325 mg p.o. daily. 3. Keppra 500 mg p.o. b.i.d. 4. Lexapro 20 mg p.o. daily. 5. MBX solution 15 mL oral 4 times a day p.r.n. 6. Prinivil 40 mg p.o. daily. REVIEW OF SYSTEMS: Twelve-point review of systems hard to obtain secondary to the patient repeating himself. PHYSICAL EXAMINATION: VITAL SIGNS: Temperature is 99 degrees, heart rate 80, respirations 20, blood pressure 120/84, O2 is 100% on room air. GENERAL: Mr. Domingo is a 68-year-old male who is lying in the bed, in no acute distress. HEENT: Atraumatic, normocephalic. PERRL. NECK: Supple. Trachea midline. CARDIOVASCULAR: S1, S2 appreciated. No murmurs, gallops, rubs noted. RESPIRATORY: Lung sounds, decreased airway entry. Could not get patient to take in deep breaths. Did not appreciate any rales, rhonchi, or wheezes. ABDOMEN: Appeared to be soft, nontender, nondistended. Positive bowel sounds. NEUROLOGIC: Initially patient, when I asked him what brought him into the hospital, he would just say "I had a stroke" to any question I asked him, and then finally he would inappropriately answer yes or no to questions. He did know his name. He did know his date of . He thought he was in [place]. He was unsure of the year. He did not know the president. He did follow commands. He does have what appears to be some right-sided residual weakness. He was able to grasp my hand and let go on the left and grasp it on the right, but did not let to go on command. He can move his left leg. However, he did not follow commands in wiggling either of his toes. He was able to somewhat lift his right leg. He did not understand push-pull. His smile was symmetrical. His tongue was midline. No family at bedside to assess that this was his baseline. DIAGNOSTIC DATA: Head CT, chronic ischemic changes and atrophy, no evidence of acute disease. Chest x-ray is currently pending. LABORATORY DATA: White count 11, hemoglobin and hematocrit 13 and 42, platelet count is 214,000. Sodium 132, potassium 3.8, BUN 23, creatinine 1.8, blood glucose is 164. Urinalysis, 4+ bacteria, too numerous to count WBCs, 4+ blood, negative for nitrites. Toxicology screen negative. ASSESSMENT AND PLAN: 1. Altered mental status, questioning cerebrovascular accident versus transient ischemic attack. Unsure of patient's exact baseline. We will continue with full neurological workup with MRI, MRA, carotids and echo, PT, speech evaluation. 2. Acute kidney injury on chronic kidney disease. We will continue with IV fluids. 3. Questionable aspiration pneumonia. We will do a swallow evaluation to see how he is swallowing. Continue with IV antibiotics. 4. Urinary tract infection. Continue IV antibiotics. 5. History of cerebrovascular accident in 2015 with right-sided hemiplegia. 6. Depression. 7. Atrial fibrillation. 8. Dementia. 9. Hypertension. 10. Seizures. 11. Questionable history of diabetes. Further recommendation to follow physician evaluation, laboratory and diagnostic data. Dictated by DEMARIO Hall for Shaq Becker MD cc: MD Viky Salazar MD [facility]ITAL[facility]
[2019-03-28] MEDS ORDERED: FLU VACCINE IM ONE (10:00)
--- NOTE | 2019-03-28 16:27 | Diag Imaging Result Doc PS360 ---
EXAM: MRI BRAIN W/O CONTRAST - 03/28/2019 HISTORY: CVA TECHNIQUE: MRI brain without contrast COMPARISON: 03/27/2019 CT head without contrast FINDINGS: There are atrophic changes similar to the recent CT. There is encephalomalacia at the superior frontoparietal region on the left with associated ex vacuo enlargement of the nearby left lateral ventricle. This is consistent with chronic change, such as from old infarct. There are chronic microvascular ischemic changes elsewhere. The diffusion weighted images show no areas of restricted diffusion (no evidence of acute infarct). There is no evidence of intracranial hemorrhage, mass effect, or midline shift. IMPRESSION: Atrophic changes and chronic ischemic changes. No visible acute intracranial abnormality. No evidence of acute infarct. Electronically signed by Cameron Casillas 03/28/2019 4:24 PM
--- NOTE | 2019-03-28 16:36 | Diag Imaging Result Doc PS360 ---
EXAM: MRA BRAIN W/O CONTRAST - 03/28/2019 HISTORY: cva TECHNIQUE: MRA brain without contrast. [id number] MRA mammogram of the intracranial circulation with 3-D MIP images is obtained. COMPARISON: None. FINDINGS: The right posterior cerebral artery is generally smaller in caliber than the left appears to have foci stenosis at its midportion. There is apparent focal relatively tight stenosis of the distal left posterior cerebral artery. There is apparent long segment tight stenosis of superiorly oriented branch of the left middle cerebral artery. There are possible short segment stenoses of right middle cerebral arterial branches. There is no other discrete major intracranial arterial occlusion identified. There is no aneurysm identified. IMPRESSION: Apparent stenoses at bilateral posterior cerebral arteries and middle cerebral arterial branches as detailed above. Electronically signed by Cameron Casillas 03/28/2019 4:34 PM
[2019-03-28] MEDS: NS 1,000 ML IV SCH (18:28)
[2019-03-28] MEDS: LEVAQUIN 500 MG/D5W 500 MG/100 ML IVPB IV SCH (22:07)
--- NOTE | 2019-03-28 22:41 | HISTORY AND PHYSICAL ---
ADDENDUM: Patient seen and examined by myself. Full note dictated and discussed with nurse practitioner. Patient presented to the hospital with fever, headache, and increased speech problems. He has a history of multiple CVAs. He currently has a fever 102.7 degrees. Appears as though he has a urinary tract infection. We will admit him in the hospital, place him on antibiotics. Follow his blood sugars. Further orders as needed. cc: Shaq Becker MD
[2019-03-29 06:10] LABS: AGAP 10; BUN 20 mg/dL (8-22); CALCIUM 8.2 mg/dL (8.8-10.2); CHLORIDE 105 mmol/L (98-107); CHOLESTEROL 103 mg/dL (0-200); COSMO 276; CREATININE 1.3 mg/dL (0.7-1.2); ESTIMATED GFR 55; GLUCOSE 96 mg/dL (70-104); HDL 29 mg/dL (35-55); LDL 60 mg/dL; SODIUM 137 mmol/L (136-145); TCO2 22 mmol/L (25-35); TRIGLYCERIDES 68 mg/dL (39-160); VLDL 14 mg/dL
[2019-03-29] MEDS ORDERED: MBX SOLUTION MT PRN (07:42)
--- NOTE | 2019-03-29 08:25 | Vascular Study Report ---
EXAM: Carotid Ultrasound HISTORY: cva TECHNIQUE: Carotid Doppler ultrasound COMPARISON: None. FINDINGS: Right: No occlusion or stenosis in the common carotid artery. No plaque in the bulb. Peak systolic velocity in the internal carotid artery is 53 cm/s. The ICA/CCA ratio 0.9. Antegrade vertebral flow. Left: There is normal flow in the common carotid artery. No occlusion or stenosis. Minimal plaque in the bulb. Peak systolic velocity in the internal carotid artery 68 cm/s. The ICA/CCA ratio is 1.1. Antegrade vertebral flow. IMPRESSION: No occlusion or stenosis within either common carotid artery or either internal carotid artery. Electronically signed by Jeffrey Nguyễn 03/29/2019 8:23 AM
--- NOTE | 2019-03-29 09:16 | ECHO REPORT ---
ORDER DATE: 03/28/2019 MEASUREMENTS: 1. Aortic root 3.6. 2. Left atrium 3.0. SUMMARY: 1. Technically difficult study due to limited acoustic window quality. 2. The aortic valve appears to be trileaflet and opens adequately on 2-dimensional images. There is some focal moderate thickenings evident that appears to be at the base of the left coronary cusp. Peak gradient across aortic valve is 10 mmHg. Mitral, tricuspid, and pulmonic valves are without evidence of structural abnormality with trace tricuspid regurgitation and trace pulmonic insufficiency. The estimated systolic PA pressure by Doppler is 35 mmHg. Mild pulmonary hypertension suggested. Aortic root is normal in size. 3. Normal left ventricular dimensions suggested on 2-dimensional images. Estimated left ventricular ejection fraction appears to be approximately 60%. No regional wall motion abnormalities are evident. Doppler suggests grade 1 left ventricular diastolic function. Left atrium, right atrium, right ventricle are normal size with grossly preserved right ventricular systolic function. 4. No pericardial effusion. 5. Inferior vena cava not well demonstrated. CONCLUSIONS: 1. Technically difficult study. 2. Aortic valve is trileaflet and opens adequately on 2-dimensional images with moderate focal thickening/sclerosis suggested at the base of the left coronary cusp. There is no significant aortic stenosis. 3. Trace tricuspid regurgitation with mild pulmonary hypertension by Doppler. 4. Normal left ventricular systolic function without regional wall motion abnormality evident. 5. Grade 1 left ventricular diastolic dysfunction suggested. cc: Rubén Charles MD
[2019-03-29] MEDS: LEXAPRO PO SCH (09:55)
[2019-03-29] MEDS: NS 1,000 ML IV SCH ×2 (09:55→23:57)
[2019-03-29] MEDS: ASPIRIN EC PO SCH (09:55)
[2019-03-29] MEDS: PRINIVIL PO SCH (09:55)
[2019-03-29] MEDS: KEPPRA PO SCH ×2 (09:56→21:24)
--- NOTE | 2019-03-29 12:55 | PROGRESS NOTE ---
DATE: 03/29/2019 SUBJECTIVE: Patient has no new complaints, states overall he is feeling okay. Denies any fevers or chills. PHYSICAL EXAM: Temperature 98 degrees, pulse 60s, respiratory rate 20, BP 119/69.General: Patient is awake, alert, currently in no respiratory distress. HEENT: Normocephalic. Neck: Supple. Cardiovascular: Regular rate. Chest: Clear, nonlabored. Abdomen: Soft, nondistended. Extremities: Moves all extremities. Neurologic: No changes. ASSESSMENT: 1. Nausea and vomiting. 2. Abdominal pain. 3. Urinary tract infection with gram-negative rods. 4. History of cerebrovascular accident. 5. Depression. 6. Atrial fibrillation. 7. Hypertension. PLAN: Will continue patient in the hospital. His metabolic encephalopathy from his urinary infection appears to have resolved. Overall, he has improved. We are going to continue antibiotics today until culture and sensitivities and possibly discharge home tomorrow if he improves. cc: Shaq Becker MD
[2019-03-29] MEDS: LIPITOR PO SCH (21:24)
[2019-03-29] MEDS: LEVAQUIN 500 MG/D5W 500 MG/100 ML IVPB IV SCH (23:57)
[2019-03-30] MEDS: PRINIVIL PO SCH (08:45)
[2019-03-30] MEDS: ASPIRIN EC PO SCH (08:45)
[2019-03-30] MEDS: LEXAPRO PO SCH (08:45)
[2019-03-30] MEDS: KEPPRA PO SCH ×2 (08:45→21:16)
--- NOTE | 2019-03-30 11:50 | PROGRESS NOTE ---
DATE: 03/30/2019 SUBJECTIVE: The patient himself notes that he is feeling okay. Denies any new complaints. PHYSICAL EXAMINATION: Vital Signs: Reviewed. Temp 97 degrees, pulse 77, respiratory rate 18, BP 101/77. General: Patient is awake. He is in no distress. He is still generally somewhat weak. He requires a trapeze bar to readjust himself in the bed. HEENT: Normocephalic. Neck: Supple. Cardiovascular: Regular rate. Chest: Clear, nonlabored. Abdomen: Soft, nondistended. Extremities: Moves all extremities although generally weak. ASSESSMENT: 1. Urinary tract infection with Proteus, currently sensitive to Levaquin. 2. Generalized weakness. 3. Adult failure to thrive. 4. History of cerebrovascular accident. 5. Chronic kidney disease. 6. Dementia. 7. Atrial fibrillation. 8. Hypertension. PLAN: We will continue patient in the hospital. Continue antibiotics. Continue to follow. Hopefully his symptoms will improve and he can eventually be discharged home. cc: Shaq Becker MD
[2019-03-30] MEDS: LEVAQUIN PO SCH (15:34)
[2019-03-30] MEDS: LIPITOR PO SCH (21:16)
[2019-03-31] MEDS: PRINIVIL PO SCH (10:14)
[2019-03-31] MEDS: LEXAPRO PO SCH (10:14)
[2019-03-31] MEDS: KEPPRA PO SCH ×2 (10:14→21:13)
[2019-03-31] MEDS: ASPIRIN EC PO SCH (10:14)
[2019-03-31] MEDS: LEVAQUIN PO SCH (16:07)
--- NOTE | 2019-03-31 16:47 | PROGRESS NOTE ---
DATE: 03/31/2019 SUBJECTIVE: Patient has no new complaints. PHYSICAL EXAMINATION: Vital Signs: Reviewed. Temp 98 degrees, pulse 56, respiratory rate 18, BP 122/78. General: Patient is awake. He is in no respiratory distress. HEENT: Normocephalic. Neck: Supple. Cardiovascular: Regular rate. Chest: Clear and nonlabored. Abdomen: Soft, nondistended. Extremities: Moves all extremities although generalized weakness and he does require trapeze bar to roll about in the bed and reposition himself. ASSESSMENT: 1. Proteus urinary tract infection. 2. Acute metabolic encephalopathy. Appears to have resolved. He appears back to his baseline. 3. History of stroke with generalized weakness and mainly right-sided hemiplegia. 4. Depression. 5. Atrial fibrillation. 6. Dementia. 7. Hypertension. PLAN: We are going to continue patient in the hospital today. Continue physical therapy. Hopefully tomorrow everything can be set up for him to discharge home. Certainly feel though discharge to rehab would be in his best interest, but he and the family have no desire to go to rehab. cc: Shaq Becker MD
[2019-03-31] MEDS: LIPITOR PO SCH (21:13)
[2019-04-01] MEDS: PRINIVIL PO SCH (09:05)
[2019-04-01] MEDS: LEXAPRO PO SCH (09:05)
[2019-04-01] MEDS: ASPIRIN EC PO SCH (09:05)
[2019-04-01] MEDS: KEPPRA PO SCH (09:05)
[2019-04-01 13:10] VITALS: BP 131/83
[2019-04-01] MEDS: LEVAQUIN PO SCH (14:05)
--- NOTE | 2019-04-01 21:05 | DISCHARGE SUMMARY ---
ADMISSION DATE: 03/28/2019 DISCHARGE DATE: 04/01/2019 PRIMARY CARE PHYSICIAN: Dr. Viky Burk. ADMISSION DIAGNOSES: 1. Altered mental status questioning cerebrovascular accident versus TIA. 2. An acute kidney injury on chronic kidney disease. 3. Questionable aspiration pneumonia. 4. Urinary tract infection. 5. 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 6. Depression. 7. Atrial fibrillation. 8. Dementia. 9. Hypertension. 10. Seizures. 11. Questionable history of diabetes. DISCHARGE DIAGNOSES: 1. Proteus urinary tract infection. 2. An acute metabolic encephalopathy resolved. 3. History of stroke with generalized weakness and mainly right-sided hemiplegia. 4. Depression. 5. Atrial fibrillation. 6. Dementia. 7. Hypertension. SUMMARY OF FINDINGS: This is a 68-year-old male who presents to the emergency room with stroke- like symptoms, weakness and fever, headache and increase in speech problem. Family reported a temperature of 102.7 degrees the day prior and a headache throughout the day with increase in speech difficulty and confusion. Was found to have UTI and acute kidney injury on chronic kidney disease and a questionable aspiration pneumonia. His brain MRI showed no visible acute intracranial abnormality. No evidence of acute infarct. Brain MRA showed apparent stenosis at the bilateral posterior cerebral arteries and middle cerebral arterial branches as described. Carotid Dopplers showed no occlusion or stenosis within either common carotid artery or either internal carotid artery. Echocardiogram was a technically difficult study with ejection fraction around 60%. He was placed on IV antibiotics. His urine culture grew out a Proteus mirabilis and his confusion appears to be back at his baseline and resolved. We did consult Physical Therapy and Speech Therapy and it is now felt that he can safely be discharged home today with Home Health Services. DISCHARGE MEDICATIONS: Aspirin 325 mg p.o. daily, atorvastatin 40 mg p.o. at bedtime, solution 15 mL 4 times daily p.r.n., Lexapro 20 mg p.o. daily, Keppra 500 mg p.o. b.i.d., Levaquin 500 mg p.o. q.24 hours #5 with no refills, Prinivil 40 mg p.o. daily. FOLLOWUP: He will need to follow up with his primary care physician in the next 1 to 2 weeks. Again, he will have home health services. All discharge instructions have been reviewed with the patient and family and they verbalized understanding. TIME SPENT: 35 minutes. Dictated by DEMARIO Grigsby for Shaq Becker MD cc: MD Shaq Chairez MD MTDEdi
--- NOTE | 2019-04-02 19:41 | DISCHARGE SUMMARY ---
ADMISSION DATE: 03/28/2019 DISCHARGE DATE: 04/01/2019 Patient seen and examined by myself. Full note dictated and discussed with nurse practitioner. On discharge, patient is awake, alert, oriented, although his speech is very difficult to hear. His mental status appears resolved. He does have a urinary tract infection with Proteus. We will continue Levaquin and he will follow up outpatient with primary care. cc: Shaq Becker MD
== END 2019-04-01 16:30 | disposition home health service (06) | DRG 689 ==
LOC: P.ED 20:54 → P.MEDSURG 20:54
PROVIDERS: ATTEND Family Medicine